=== PATIENT | female | born 1990 | race Caucasian/White ===

== ENCOUNTER 2017-06-08 16:46 | Emergency (ER) | payer SELFPAY ==
[~2017-06-08] VITALS: Ht 162.6 cm; Wt 120.0 kg
[~2017-06-08 16:46] MED LIST: ADVAIR DISK1 IN; PROAIR HFA IN
[2017-06-08 18:57] LABS: HEMOGLOBIN 13.1 g/dl (12.0-16.0); IMMATURE GRANULOCYTES 0.3 % (0.0-1.0); MEAN CELL VOLUME 80.6 fL CALC (80.0-100.0); MEAN CORPUSCULAR HGB 26.4 pG CALC (26.0-32.0); MEAN CORPUSCULAR HGB CONC 32.8 g/L CALC (32.0-36.0); NEUT# 9.14 thou/uL (2.00-7.15); RED BLOOD COUNT 4.96 mill/uL (4.20-5.60); RED CELL DISTRI WIDTH 12.8 % (11.5-15.5)
[2017-06-08 18:58] LABS: URINE BILIRUBIN - DIPSTICK NEGATIVE (NEGATIVE); URINE BLOOD DIPSTICK LARGE (NEGATIVE); URINE CLARITY CLEAR; URINE COLOR YELLOW; URINE GLUCOSE - DIPSTICK NEGATIVE (NEGATIVE); URINE KETONE NEGATIVE (NEGATIVE); URINE LEUK ESTERASE NEGATIVE (NEGATIVE); URINE NITRITE - DIPSTICK NEGATIVE (Negative); URINE PROTEIN - DIPSTICK NEGATIVE (NEG-TRACE); URINE SPECIFIC GRAVITY >=1.030; URINE UROBILINOGEN - DIPSTICK 0.2 E.U./dL (0.2)
[2017-06-08 19:14] LABS: URINE RBC TNTC RBC/hpf (0-5); URINE SQUAMOUS EPITHELIAL CELL FEW EPI/hpf (0-FEW)
[2017-06-08 19:16] LABS: ALBUMIN 4.5 g/dL (3.2-5.0); ALKALINE PHOSPHATASE 76 u/l (38-126); AMYLASE < 30 u/l (30-110); ANION GAP 18 (6-22 (CALC)); BILIRUBIN, TOTAL 0.6 mg/dL (0.0-1.4); BUN 9 mg/dL (7-17); BUN/CREATININE RATIO 14 (12-20 (CALC)); CALCIUM 9.4 mg/dL (8.4-10.2); CARBON DIOXIDE 23 mmol/l (22-30); CHLORIDE 104 mmol/l (95-108); CREATININE 0.6 mg/dL (0.5-1.0); GFR > 60 ML/MIN (>=60 (CALC)); GFR FOR AFR.AMER. > 60 ML/MIN (>=60 (CALC)); GLUCOSE 88 mg/dL (65-105); LIPASE 51 u/l (23-300); POTASSIUM 3.6 mmol/l (3.5-5.1); SGOT/AST 20 u/l (14-36); SGPT/ALT 40 u/l (9-52); SODIUM 142 mmol/l (137-146); TOTAL PROTEIN 7.7 g/dL (6.3-8.2)
[2017-06-08 19:29] LABS: MYOGLOBIN 28 ng/mL (0 - 62)
[2017-06-08 21:32] VITALS: BP 112/63
== END 2017-06-08 21:32 | disposition home or self-care (01) | DRG 392 ==
LOC: ED 16:46
PROVIDERS: Emergency Medicine
DX: R10.13 Epigastric pain (principal); M54.9 Dorsalgia, unspecified; R10.11 Right upper quadrant pain; R11.0 Nausea
CPT/HCPCS: S0164

== ENCOUNTER 2017-12-16 16:15 | Emergency (ER) | payer SELFPAY ==
[~2017-12-16] VITALS: Ht 162.6 cm; Wt 118.0 kg
[2017-12-16] MEDS ORDERED: SEPTRA4001 PO (16:33)
[2017-12-16] MEDS ORDERED: AUGMENTIN875TAB PO (16:33)
[2017-12-16 16:47] VITALS: BP 157/77
== END 2017-12-16 16:45 | disposition home or self-care (01) | DRG 603 ==
LOC: ED 16:15
DX: L08.9 Local infection of the skin and subcutaneous tissue, unspecified (principal)

== ENCOUNTER 2018-05-06 06:25 | Emergency (ER) | payer SELFPAY ==
[~2018-05-06] VITALS: Ht 162.6 cm; Wt 109.0 kg
[~2018-05-06 06:25] MED LIST changes: +AUGMENTIN875TAB PO; +SEPTRA4001 PO
[2018-05-06 07:05] LABS: HEMATOCRIT 36.9 % (37.0-47.0); HEMOGLOBIN 12.4 g/dl (12.0-16.0); IMMATURE GRANULOCYTES 0.5 % (0.0-1.0); MEAN CELL VOLUME 82.4 fL CALC (80.0-100.0); MEAN CORPUSCULAR HGB 27.7 pG CALC (26.0-32.0); MEAN CORPUSCULAR HGB CONC 33.6 g/L CALC (32.0-36.0); NEUT# 5.64 thou/uL (2.00-7.15); RED BLOOD COUNT 4.48 mill/uL (4.20-5.60); RED CELL DISTRI WIDTH 12.5 % (11.5-15.5); URINE BILIRUBIN - DIPSTICK NEGATIVE (NEGATIVE); URINE BLOOD DIPSTICK LARGE (NEGATIVE); URINE COLOR YELLOW; URINE GLUCOSE - DIPSTICK NEGATIVE (NEGATIVE); URINE KETONE NEGATIVE (NEGATIVE); URINE LEUK ESTERASE NEGATIVE (NEGATIVE); URINE NITRITE - DIPSTICK NEGATIVE (Negative); URINE PH 5.5 (4.5-8.0); URINE PROTEIN - DIPSTICK NEGATIVE (NEG-TRACE); URINE UROBILINOGEN - DIPSTICK 0.2 E.U./dL (0.2)
[2018-05-06 07:08] LABS: URINE CLARITY SL CLOUDY
[2018-05-06 07:11] LABS: URINE BACTERIA FEW hpf; URINE MUCUS FEW hpf (NONE-FEW); URINE SQUAMOUS EPITHELIAL CELL MODERATE EPI/hpf (0-FEW)
[2018-05-06 07:44] LABS: ALBUMIN 3.5 g/dL (3.2-5.0); ALKALINE PHOSPHATASE 63 u/l (38-126); AMYLASE 43 u/l (30-110); ANION GAP 13 (6-22 (CALC)); BILIRUBIN, TOTAL 0.2 mg/dL (0.0-1.4); BUN 10 mg/dL (7-17); BUN/CREATININE RATIO 17 (12-20 (CALC)); CARBON DIOXIDE 20 mmol/l (22-30); CHLORIDE 107 mmol/l (95-108); CREATININE 0.6 mg/dL (0.5-1.0); GFR > 60 ML/MIN (>=60 (CALC)); GFR FOR AFR.AMER. > 60 ML/MIN (>=60 (CALC)); LIPASE 67 u/l (23-300); POTASSIUM 3.3 mmol/l (3.5-5.1); SGOT/AST 17 u/l (14-36); SGPT/ALT 31 u/l (9-52); SODIUM 137 mmol/l (137-146); TOTAL PROTEIN 6.7 g/dL (6.3-8.2)
[2018-05-06 09:08] VITALS: BP 116/61
== END 2018-05-06 09:20 | disposition home or self-care (01) | DRG 552 ==
LOC: ED 06:25
PROVIDERS: Family Medicine
DX: M54.5 Low back pain (principal); R10.12 Left upper quadrant pain; R19.7 Diarrhea, unspecified
CPT/HCPCS: Q9967

== ENCOUNTER 2021-12-12 20:39 | Emergency (ER) | payer SELFPAY | END 2021-12-12 21:29 | disposition left against medical advice (07) | DRG 951 | LOC: ED 20:39 → LWOBS 21:29 | DX: Z53.21 Procedure and treatment not carried out due to patient leaving prior to being seen by health care provider (principal) ==